=== PATIENT | male | born 1955 | race Two or more races ===

== ENCOUNTER 2020-10-17 09:03 | Outpatient (CLI) | payer OTHER ==
[~2020-10-17 09:03] MED LIST: AMOX1TAB12 PO
== END 2020-10-17 09:10 | disposition home or self-care (01) ==
LOC: RAD 09:03
PROVIDERS: ATTEND Orthopaedic Surgery
DX: M25.561 Pain in right knee (principal); M25.562 Pain in left knee

== ENCOUNTER 2020-10-25 07:13 | Outpatient (CLI) | payer OTHER | END 2020-10-25 13:30 | disposition home or self-care (01) | LOC: MRI 07:13 | PROVIDERS: ATTEND Orthopaedic Surgery | DX: M17.12 Unilateral primary osteoarthritis, left knee (principal); M25.462 Effusion, left knee; M25.562 Pain in left knee | CPT/HCPCS: 73718 ==

== ENCOUNTER 2021-05-29 14:59 | Emergency (ER) | payer OTHER ==
[~2021-05-29] VITALS: Ht 167.6 cm; Wt 86.2 kg
[2021-05-29] MEDS ORDERED: ZOCOR20 MG (15:11)
[2021-05-29] MEDS ORDERED: CARDURA1 MG (15:12)
[2021-05-29] MEDS ORDERED: VERELAN180 MG (15:12)
[2021-05-29] MEDS ORDERED: ALLOPURINOL100 MG (15:12)
[2021-05-29] MEDS ORDERED: AVAPRO300 MG (15:12)
[2021-05-29] MEDS ORDERED: ZOFRAN8 MG PO (19:11)
[2021-05-29] MEDS ORDERED: PEPCID AC20 MG PO (19:11)
== END 2021-05-29 21:27 | disposition home or self-care (01) ==
LOC: ER 14:59
DX: A05.0 Foodborne staphylococcal intoxication (principal); E86.0 Dehydration